=== PATIENT | female | born 1950 | race American Indian/Alaskan Native ===

== ENCOUNTER 2018-08-20 19:46 | Emergency (ER) | payer OTHER ==
--- NOTE | 2018-08-20 20:26 | Emergency Department Report ---
Blank Doc - Documentation Documentation: This is a 67-year-old female that presents with dizziness and rooming spinning sensation. Denies any synope or any other complaints. This initial assessment/diagnostic orders/clinical plan/treatment(s) is/are subject to change based on patient's health status, clinical progression and re- assessment by fellow clinical providers in the ED. Further treatment and workup at subsequent clinical providers discretion. Patient/guardians urged not to elope from the ED as their condition may be serious if not clinically assessed and managed. Initial orders include: 1- Patient sent to [facility] for further evaluation and treatment 2- labs 3- EKG 4- UA
[2018-08-20 20:49] LABS: Basophils % (Auto) 0.3 % (0.0-1.8); Eosinophils # (Auto) 0.1 K/mm3 (0.0-0.4); Eosinophils % (Auto) 1.7 % (0.0-4.3); Hematocrit 38.5 % (30.3-42.9); Hemoglobin 12.8 gm/dl (10.1-14.3); Lymphocytes # (Auto) 1.1 K/mm3 (1.2-5.4); Lymphocytes % (Auto) 19.3 % (13.4-35.0); Mean Corpuscular HGB Conc 33 % (30-34); Mean Corpuscular Volume 86 fl (79-97); Monocytes # (Auto) 0.4 K/mm3 (0.0-0.8); Monocytes % (Auto) 7.9 % (0.0-7.3); Platelet Count 338 K/mm3 (140-440); Red Blood Count 4.48 M/mm3 (3.65-5.03); Red Cell Distribution Width 13.8 % (13.2-15.2)
[2018-08-20 21:09] LABS: BUN/Creatinine Ratio 13; Blood Urea Nitrogen 9 mg/dL (7-17); Calcium 9.7 mg/dL (8.4-10.2); Hemolysis Index 7
[2018-08-20 21:49] LABS: Bacteria,Urine 1+ /HPF (Negative); Bilirubin,Urine NEG (Negative); Blood,Urine NEG (Negative); Color,Urine Colorless (Yellow); Protein,Urine <15 mg/dL mg/dL (Negative); Urobilinogen,Urine < 2.0 mg/dL (<2.0); WBC,Urine < 1.0 /HPF (0.0-6.0)
--- NOTE | 2018-08-20 22:54 | XRay Report ---
CHEST PA AND LATERAL VIEWS INDICATION: dizziness. COMPARISON: None FINDINGS: Support devices: None Heart: Normal Lungs/Pleura: No acute pulmonary or pleural findings. IMPRESSION: 1. Negative study Signer Name: Moses Powell MD Signed: 08/20/2018 10:50 PM Workstation Name: [id number]
[2018-08-21] MEDS ORDERED: ANTIVERT PO ONE (00:18)
[2018-08-21] MEDS ORDERED: CATAPRES PO STA (02:12)
[2018-08-21] MEDS ORDERED: CATAPRES ONE (02:18)
--- NOTE | 2018-08-21 02:19 | Emergency Department Report ---
ED General Adult HPI - General Chief complaint: Dizziness Stated complaint: DIZZINESS Time Seen by Provider: 08/20/18 20:26 Source: patient Mode of arrival: Ambulatory Limitations: No Limitations - History of Present Illness Initial comments: 67-year-old -[place] female who is negative past medical history present emergency department complaining of dizziness that started this morning feeling like the room was spinning, worse when she held her head in various positions or moves her head from side to side. Associated with blood pressure was slightly elevated at 177/85. She reports no chest pain, palpitations, nausea, vomiting, fever, chills, sweats. -: Gradual Location: head Radiation: non-radiation Quality: dull Consistency: constant Improves with: none Worsens with: none Associated Symptoms: denies: chest pain, diaphoresis, fever/chills, loss of appetite, malaise, nausea/vomiting, syncope, weakness Treatments Prior to Arrival: none - Related Data Previous Rx's Medication Instructions Recorded Last Taken Type Lisinopril [Zestril TAB] 10 mg PO QDAY #14 tablet 08/21/18 Unknown Rx Meclizine [Antivert] 25 mg PO TID PRN #20 tablet 08/21/18 Unknown Rx Allergies Allergy/AdvReac Type Severity Reaction Status Date / Time No Known Allergies Allergy Unverified 08/20/18 20:03 ED Review of Systems ROS: Stated complaint: DIZZINESS Other details as noted in HPI Comment: All other systems reviewed and negative ED Past Medical Hx - Past Medical History Previous Medical History?: No - Surgical History Past Surgical History?: Yes Additional Surgical History: Tubal Ligation - Social History Smoking Status: Never Smoker - Medications Home Medications: Home Medications Medication Instructions Recorded Confirmed Last Taken Type Lisinopril [Zestril TAB] 10 mg PO QDAY #14 tablet 08/21/18 Unknown Rx Meclizine [Antivert] 25 mg PO TID PRN #20 tablet 08/21/18 Unknown Rx ED Physical Exam - General Limitations: No Limitations General appearance: alert, in no apparent distress - Head Head exam: Present: atraumatic, normocephalic - Eye Eye exam: Present: normal appearance, PERRL, EOMI Pupils: Present: other (negative funduscopic examination. No nystagmus.) - ENT ENT exam: Present: normal exam, normal orophraynx, mucous membranes moist - Neck Neck exam: Present: normal inspection, full ROM. Absent: tenderness, meningismus, lymphadenopathy, thyromegaly - Respiratory Respiratory exam: Present: normal lung sounds bilaterally. Absent: respiratory distress, wheezes, rales, rhonchi, chest wall tenderness, accessory muscle use, decreased breath sounds - Cardiovascular Cardiovascular Exam: Present: regular rate, normal rhythm. Absent: systolic murmur, diastolic murmur, rubs, gallop - GI/Abdominal GI/Abdominal exam: Present: soft, normal bowel sounds. Absent: guarding, rebound - Extremities Exam Extremities exam: Present: normal inspection, normal capillary refill - Back Exam Back exam: Present: normal inspection - Neurological Exam Neurological exam: Present: alert, oriented X3, CN II-XII intact, normal gait - Psychiatric Psychiatric exam: Present: normal affect, normal mood - Skin Skin exam: Present: warm, dry, intact, normal color. Absent: rash ED Course Vital Signs 08/20/18 08/20/18 08/21/18 19:51 20:04 01:09 Temperature 97.7 F 97.7 F Pulse Rate 61 61 Pulse Rate [ 62 Lying] Respiratory 16 20 Rate Blood Pressure 177/85 177/85 Blood Pressure 212/95 [Lying] Blood Pressure [Right] O2 Sat by Pulse 98 Oximetry 08/21/18 08/21/18 03:24 03:57 Temperature Pulse Rate 79 78 Pulse Rate [ Lying] Respiratory 16 14 Rate Blood Pressure Blood Pressure [Lying] Blood Pressure 165/73 158/100 [Right] O2 Sat by Pulse 97 99 Oximetry ED Medical Decision Making - Lab Data Result diagrams: 08/20/18 20:34 08/20/18 20:34 - Medical Decision Making This 7-year-old -[place] female with a relatively benign past medical history presents to the emergency department complaining of a headache with appear to be vertigo symptoms. She had a small response to the Antivert. Blood primarily got her relief from with blood pressure reduction. Blood pressure responded to clonidine 1 able to ambulate around the anterior the ED without assistance with no complications. States he feels much, much better than seeking to be discharged home. She is currently not taking any blood pressure medications so we'll start her on low dose lisinopril. Critical care attestation.: If time is entered above; I have spent that time in minutes in the direct care of this critically ill patient, excluding procedure time. ED Disposition Clinical Impression: Dizziness, HTN (hypertension) Disposition: -01 TO HOME OR SELFCARE Is pt being admited?: No Does the pt Need Aspirin: No Condition: Stable Instructions: Meniere Disease (ED), Vertigo (ED), Hypertension (ED), Dizziness (ED) Prescriptions: Meclizine [Antivert] 25 mg PO TID PRN #20 tablet PRN Reason: Vertigo Lisinopril [Zestril TAB] 10 mg PO QDAY #14 tablet Referrals: WAYNE JENSEN MD [Primary Care Provider] - 3-5 Days
[2018-08-21 04:00] VITALS: BP 158/100
== END 2018-08-21 04:27 | disposition home or self-care (01) ==
LOC: ED 19:46
DX: I10 Essential (primary) hypertension (principal); R42 Dizziness and giddiness; Z98.51 Tubal ligation status
CPT/HCPCS: 36415; 71046; 80048; 81001; 85025; 93005; 93010